=== PATIENT | female | born 1950 | race Caucasian/White ===

== ENCOUNTER 2016-12-27 14:15 | Emergency (ER) | payer MEDICARE, MEDICAID ==
[2016-12-27 14:22] VITALS: BP 194/100
--- NOTE | 2016-12-27 15:02 | EDM.PDOC ---
ED HPI ENT - General Stated Complaint: shortness of breath Time Seen by Provider: 12/27/16 14:18 Source of Information: Reports: Patient History Limitations: Reports: No limitations - History of Present Illness INITIAL COMMENTS - FREE TEXT/NARRATIVE: This patient is a 66 year old female that presents to the ER. Patient reports that over a week ago she began to have congestion, drainage, and prodictuve cough. She reports that she was seen by her PCP and given to two injections. Patient reports then the last 4 days she has had worsening in shortness of breath. She reports it is worse when she takes big deep breaths or walks. Patent reports sister has had pneumonia and she has been around her a lot. Patient denies headache, dizziness, n, v, d, f, cp, abd pain, urinary/bowel changes. Patient is conversing in full and complete sentences without any difficulty. She is ambulating without difficulty. She does not appear in distress of short of breath. Stable. Symptom Onset Date: 12/19/16 Timing/Duration: Reports: Week(s): (1), Getting worse Severity: mild Improves with: Reports: None Worsens with: Reports: Breathing, Movement Associated Symptoms: Reports: shortness of breath, cough, sputum. Denies: confusion, headaches, seizure, syncope, weakness, chest pain, fever/chills, diaphoresis, malaise, loss of appetite, nausea/vomiting, rash - Related Data Allergies/ADRs: Allergies Allergy/AdvReac Type Severity Reaction Status Date / Time latex Allergy Mild Hives Verified 12/27/16 15:00 ED ROS ENT - Review of Systems Review Of Systems: See Below Constitutional: Reports: no symptoms HEENT: Reports: Rhinitis, Sinus problem Respiratory: Reports: Shortness of Breath, Cough, Sputum Cardiovascular: Reports: No symptoms Endocrine: Reports: no symptoms GI/Abdominal: Reports: No symptoms : Reports: no symptoms Musculoskeletal: Reports: no symptoms Skin: Reports: no symptoms Neurological: Reports: No Symptoms Psychiatric: Reports: No symptoms Hematologic/Lymphatic: Reports: no symptoms Immunologic: Reports: no symptoms ED EXAM, ENT - Physical Exam Exam: See Below Exam Limited By: No limitations General Appearance: alert, WD/WN, no apparent distress Eye Exam: bilateral eye: normal inspection, PERRL Ears: normal external exam, normal canal, hearing grossly normal, normal TMs Nose: normal inspection, normal mucousa, no blood Mouth/Throat: Normal inspection, Normal gums, Normal lips, Normal oropharynx, Normal teeth Head: atraumatic, normocephalic Neck: normal inspection, supple, non-tender, full range of motion Respiratory/Chest: no respiratory distress, lungs clear, normal breath sounds, no accessory muscle use Cardiovascular: normal peripheral pulses, regular rate, rhythm, no edema, no gallop, no JVD, no rub, systolic murmur GI/Abdominal: soft, non tender Back: normal inspection, full range of motion Extremities: normal inspection, normal range of motion, non-tender, no pedal edema, normal capillary refill Neurological: alert, oriented, CN II-XII intact, normal cognition, normal gait, no motor/sensory deficits Psychiatric: normal affect, normal mood Skin: Warm, Dry, Intact, Normal color, No rash Lymphatic: no adenopathy EKG INTERPRETATION EKG Date: 12/27/16 Time: 14:19 Rhythm: NSR Rate (beats/min): 71 [place]: normal P-wave: present QRS: normal ST-T: normal QT: normal Course - Vital Signs Last Recorded V/S: Last Vital Signs Temp 97.9 F 12/27/16 14:17 Pulse 65 12/27/16 14:17 Resp 20 12/27/16 14:17 BP 194/100 H 12/27/16 14:17 Pulse Ox 95 12/27/16 14:17 - Orders/Labs/Meds Orders: Active Orders 24 hr Category Date Time Status Chest 2V [CR] Routine Exams 12/27/16 Taken PE Chest [Ang Chest] [CT] Stat Exams 12/27/16 15:27 Taken Labs: Laboratory Tests 12/27/16 12/27/16 12/27/16 Range/Units 14:33 14:33 14:34 WBC 8.3 (5.0-10.0) 10^3/uL RBC 4.04 (4.00-5.50) 10^6/uL Hgb 12.4 (12.0-16.0) g/dL Hct 39.2 (37.0-47.0) % MCV 97.0 H (82.0-94.0) fL MCH 30.7 (27.0-32.0) pg MCHC 31.6 L (33.0-38.0) g/dL RDW Coeff of Sylvia 15.5 H (11.0-15.0) % Plt Count 218 (150-400) 10^3/uL Neut % (Auto) 69.4 (35-85) % Lymph % (Auto) 22.6 (10-55) % [place] % (Auto) 6.6 (0-16) % Eos % (Auto) 1.2 (0-5) % Baso % (Auto) 0.2 (0-3) % Neut # (Auto) 5.78 (1.80-7.00) 10^3/uL Lymph # (Auto) 1.88 (1.00-4.80) 10^3/uL [place] # (Auto) 0.55 (0.00-0.80) 10^3/uL Eos # (Auto) 0.10 (0.00-0.45) 10^3/uL Baso # (Auto) 0.02 10^3/uL D-Dimer, Quantitative 0.71 H (0.00-0.50) Sodium 140 (136-145) mEq/L Potassium 4.8 (3.5-5.0) mEq/L Chloride 103 (98-106) mEq/L Carbon Dioxide 30 (21-32) mmol/L BUN 22 H D (7-18) mg/dL Creatinine 1.5 H (0.6-1.0) mg/dL Est Cr Clr Drug Dosing 30.52 mL/min Estimated GFR (MDRD) 35 L (>=60) mL/min Glucose 114 H (75-99) mg/dL Calcium 9.9 (8.4-10.1) mg/dL Total Bilirubin 0.6 (0.0-1.0) mg/dL AST 21 (15-37) U/L ALT 12 (12-78) U/L Alkaline Phosphatase 96 (46-116) U/L Troponin I < 0.017 (0.00-0.06) ng/mL [id number] Pept 1704 H (0-1000) pg/nL Total Protein 7.0 (6.4-8.2) g/dL Albumin 3.6 (3.4-5.0) g/dL Meds: Medications Discontinued Medications Generic Name Dose Route Start Last Admin Trade Name Freq PRN Reason Stop Dose Admin Furosemide 40 mg 12/27/16 15:31 12/27/16 16:22 Lasix IVPUSH 12/27/16 15:32 40 mg ONETIME ONE Administration Sodium Chloride 1,000 mls @ 1,000 mls/hr 12/27/16 15:31 12/27/16 16:19 Normal Saline IV 12/27/16 16:30 1,000 mls/hr .BOLUS ONE Administration - Radiology Interpretation Free Text/Narrative:: CXR: No infiltrates, no pulmonary edema, no cardiomegaly. CT Chest Angio: No PEs, no edema, no cardiac enlargment. Has emphysema. The aorta is upper limits of normal, possible US later for f/u. CT Results Date: 12/27/16 CT Results Time: 17:05 - Re-Assessments/Exams Free Text/Narrative Re-Assessment/Exam: 12/27/16 17:14 Patient has no edema on exam, no edema in lungs on ct or cxr. BNP lab is 1800. I will start her on lasix PO and echocardiogram on Thursday outpatient. She has some renal insufficiency, I have given her fluids in ER. She is drinking and can do so at home. I will treat her cough, dyspnea with steriods due to COPD on CT. Stable discharge. Departure - Departure Time of Disposition: 17:11 Disposition: Home, Self-Care 01 Condition: good Clinical Impression: COPD exacerbation Congestive heart failure Qualifiers: Congestive heart failure type: systolic Congestive heart failure chronicity: acute Qualified Code(s): I50.21 - Acute systolic (congestive) heart failure Instructions: Shortness of Breath, [id number], Chronic Obstructive Pulmonary Disease Exacerbation, [id number] Additional Instructions: Followup with your primary care provider Return to the ER for worsening of condition or any emergent concerns Lasix 40mg 1 pill once a day #21 no refill Prednisone 20mg 1 pill twice a day for 5 days #10 no refill Echocardiogram Thursday Morning. Increase fluids - My Orders Last 24 Hours: My Active Orders 12/27/16 Chest 2V [CR] Routine 12/27/16 15:27 PE Chest [Ang Chest] [CT] Stat - Assessment/Plan Last 24 Hours: My Active Orders 12/27/16 Chest 2V [CR] Routine 12/27/16 15:27 PE Chest [Ang Chest] [CT] Stat Plan: PLEASE SEE RN NOTE FOR PFSH.
[2016-12-27 15:20] LABS: CHLORIDE,CL 103 mEq/L (98-106); SODIUM,NA 140 mEq/L (136-145)
[2016-12-27] MEDS ORDERED: Sodium Chloride 0.9% 1,000 ML IV ONE (15:31)
[2016-12-27] MEDS ORDERED: Furosemide 40 MG/4 ML VIAL IVPUSH ONE (15:31)
[2016-12-27] MEDS ORDERED: methylPREDNISolone Sodium Succinate 125 MG/2 ML SDV IVPUSH STA (17:17)
== END 2016-12-27 18:05 | disposition home or self-care (01) ==
LOC: CC.ED 14:15
DX: I50.21 Acute systolic (congestive) heart failure (principal); J44.1 Chronic obstructive pulmonary disease with (acute) exacerbation; Z91.040 Latex allergy status
CPT/HCPCS: 36415; 71020; 71275; 80053; 83880; 84484; 85025; 85379; 93005; 96361; 96374; 96375; 99285; J1940; J2930; J7030; Q9967; 93010